=== PATIENT | male | born 1965 | race Caucasian/White ===

== ENCOUNTER → 2017-01-23 | Outpatient (CLI) | payer OTHER ==
[~2017-01-23] MED LIST: ALLO100T PO; CHOL1TAB42 PO; CIPR-255 PO; DICY1TAB25 PO; METH2.5T PO; OMEG120013 PO; PRED20TA PO; VEDO1INJ IV
[2017-01-23 09:41] LABS: BASO % 0.5 %; BASO ABS # 0.05 K/uL (0-0.2); COMPLETE YES; EOS % 6.1 %; HEMATOCRIT 42.3 % (42-52); IG% 0.3 %; LYMPH % 37.1 %; LYMPH ABS # 3.43 K/uL (1.2-3.4); MEAN CELL VOLUME 86.7 fL (80-100); MEAN CORPUSCULAR HEMOGLOBIN 28.7 pg (25-34); MEAN CORPUSCULAR HGB CONC 33.1 g/dl (32-36); MONO % 7.1 %; NEUT % 48.9 %; PLATELET COUNT 285 K/uL (130-400); RED BLOOD COUNT 4.88 M/uL (4.7-6.1); WHITE BLOOD COUNT 9.25 K/uL (4.8-10.8)
[2017-01-23 09:54] LABS: ESTIMATED AVERAGE GLUCOSE 114 mg/dl; HA1C FLAG Normal (Normal)
[2017-01-23 10:00] LABS: ALT/SGPT 34 U/L (12-78); AST/SGOT 16 U/L (15-37); BLOOD UREA NITROGEN 14 mg/dl (7-18); BUN/CREATININE RATIO 12.6 (10-20); CALCIUM 8.9 mg/dl (8.5-10.1); CARBON DIOXIDE 25 mmol/L (21-32); CHLORIDE 107 mmol/L (98-107); CHOLESTEROL 197 mg/dl (0-200); GLUCOSE 96 mg/dl (70-99); POTASSIUM 4.1 mmol/L (3.5-5.1); SODIUM 140 mmol/L (136-145); TRIGLYCERIDES 543 mg/dl (0-150); URIC ACID 7.3 mg/dl (2.6-7.2)
[2017-01-23 10:04] LABS: ALB/GLOB RATIO 0.8 (0.9-2); ALKALINE PHOSPHATASE 81 U/L (45-117); CHOLESTEROL/HDL RATIO 4.4; HDL CHOLESTEROL 45 mg/dl
== END | disposition home or self-care (01) ==
LOC: C.LAB 07:38
PROVIDERS: ATTEND Family Medicine
DX: Z00.00 Encounter for general adult medical examination without abnormal findings (principal); K50.90 Crohn's disease, unspecified, without complications; E79.0 Hyperuricemia without signs of inflammatory arthritis and tophaceous disease; R73.03 Prediabetes; E55.9 Vitamin D deficiency, unspecified; E78.2 Mixed hyperlipidemia; R63.8 Other symptoms and signs concerning food and fluid intake

== ENCOUNTER → 2017-05-13 | Outpatient (CLI) | payer OTHER ==
--- NOTE | 2017-05-13 14:59 | DIAGNOSTIC IMAGING REPORT ---
KUB CLINICAL HISTORY: 52 years-old Male presenting with kidney stones. TECHNIQUE: Single supine view of the abdomen was obtained. COMPARISON: 09/17/2015. FINDINGS: No convincing calcification projects over the renal shadows or along the courses of the bilateral ureters to suggest calculi. Possibly of bowel gas, nonspecific. No gross pneumoperitoneum. Osseous structures normal. IMPRESSION: 1. No radiographic evidence of renal calculi. Electronically signed by: Jake Simpson M.D. 05/13/2017 2:58 PM Dictated Date/Time: 05/13/2017 2:57 PM
== END | disposition home or self-care (01) ==
LOC: C.LAB 14:31
PROVIDERS: ATTEND Urology
DX: N20.0 Calculus of kidney (principal)

== ENCOUNTER → 2017-07-10 | Outpatient (CLI) | payer OTHER ==
[2017-07-10 10:01] LABS: ESTIMATED AVERAGE GLUCOSE 108 mg/dl; HA1C FLAG Normal (Normal)
[2017-07-10 10:03] LABS: ALT/SGPT 50 U/L (12-78); AST/SGOT 22 U/L (15-37); BLOOD UREA NITROGEN 14 mg/dl (7-18); BUN/CREATININE RATIO 13.2 (10-20); CALCIUM 8.7 mg/dl (8.5-10.1); CARBON DIOXIDE 23 mmol/L (21-32); CHLORIDE 109 mmol/L (98-107); CHOLESTEROL 197 mg/dl (0-200); CREATININE 1.07 mg/dl (0.60-1.40); GLUCOSE 91 mg/dl (70-99); POTASSIUM 4.1 mmol/L (3.5-5.1); SODIUM 139 mmol/L (136-145)
[2017-07-10 10:05] LABS: ALB/GLOB RATIO 0.8 (0.9-2); ALKALINE PHOSPHATASE 82 U/L (45-117); CHOLESTEROL/HDL RATIO 3.4; HDL CHOLESTEROL 58 mg/dl; LDL CHOLESTEROL CALCULATED 81 mg/dl; TRIGLYCERIDES 289 mg/dl (0-150); URIC ACID 8.1 mg/dl (2.6-7.2); VERY LOW DENSITY LIPOPROT CALC 58 mg/dl
== END | disposition home or self-care (01) ==
LOC: C.LAB1850 07:42
PROVIDERS: ATTEND Family Medicine
DX: J06.9 Acute upper respiratory infection, unspecified (principal); K50.90 Crohn's disease, unspecified, without complications; E79.0 Hyperuricemia without signs of inflammatory arthritis and tophaceous disease; E78.2 Mixed hyperlipidemia; R73.03 Prediabetes

== ENCOUNTER → 2018-01-01 | Outpatient (CLI) | payer OTHER ==
[2018-01-01 09:53] LABS: HEMOGLOBIN A1C 5.4 % (4.5-5.6)
[2018-01-01 09:59] LABS: ALBUMIN 3.2 gm/dl (3.4-5.0); ALT/SGPT 36 U/L (12-78); AST/SGOT 19 U/L (15-37); BLOOD UREA NITROGEN 12 mg/dl (7-18); CALCIUM 8.9 mg/dl (8.5-10.1); CARBON DIOXIDE 24 mmol/L (21-32); CREATININE 1.07 mg/dl (0.60-1.40); GLUCOSE 93 mg/dl (70-99); POTASSIUM 3.9 mmol/L (3.5-5.1); SODIUM 137 mmol/L (136-145); TOTAL PROTEIN 7.3 gm/dl (6.4-8.2)
[2018-01-01 10:03] LABS: ALKALINE PHOSPHATASE 69 U/L (45-117); CHOLESTEROL 182 mg/dl (0-200); LDL CHOLESTEROL CALCULATED 74 mg/dl; URIC ACID 6.6 mg/dl (2.6-7.2)
== END | disposition home or self-care (01) ==
LOC: C.LAB 08:18
PROVIDERS: ATTEND Family Medicine
DX: K50.90 Crohn's disease, unspecified, without complications (principal); E78.5 Hyperlipidemia, unspecified; E79.0 Hyperuricemia without signs of inflammatory arthritis and tophaceous disease; R73.03 Prediabetes

== ENCOUNTER 2023-02-28 11:10 | Observation (INO) ==
--- NOTE | 2023-02-22 08:44 | Anesthesiology Consultation ---
Date of Service February 22, 2023 Assessment & Plan (1) Encounter for pre-operative examination: Chart Review Chart Review: Acceptable Risk for Surgery and Patient NOT seen in Pre Admission Testing -COVID screening: Per PAT nursing assessment on 02/19/23. No known COVID-19 positive contacts or current COVID-19 related symptoms. Travel screen negative. Patient vaccinated for Covid. At surgeon discretion if preop Covid testing being done. History Surgery Operation Date: 02/28/23 10:20 Proposed Procedures p TURP (Transurethral Resection Prostate) - Jason Suarez, Height/Weight Height: 5 ft 9.5 in Weight: 106.594 kg Allergies Allergy/AdvReac Type Severity Reaction Status Date / Time No Known Allergies Allergy Verified 02/19/23 14:00 Medications Home Medications Medication Instructions Recorded Confirmed Last Taken allopurinol 100 mg tablet 300 mg PO HS 11/16/21 02/19/23 08/29/22 23:00 cyanocobalamin (vitamin B-12) 1,000 mcg PO HS 11/16/21 02/19/23 08/29/22 23:00 1,000 mcg capsule lisinopril 10 mg tablet 10 mg PO HS 11/16/21 02/19/23 08/29/22 23:00 vedolizumab 300 mg intravenous 300 mg IV UD 11/16/21 02/19/23 07/19/22 14:00 solution (Entyvio) cholecalciferol (vitamin D3) 25 75 mcg PO HS 08/21/22 02/19/23 08/29/22 23:00 mcg (1,000 unit) tablet (Vitamin D3) ferrous sulfate 325 mg (65 mg 650 mg PO HS 08/21/22 02/19/23 08/29/22 23:00 iron) tablet ciprofloxacin HCl 500 mg tablet 500 mg PO BID 3 days #6 tabs 02/14/23 02/14/23 Unknown tamsulosin 0.4 mg capsule 0.4 mg PO DAILY #30 caps 02/14/23 02/19/23 Unknown Past Medical History Medical History Crohns disease Entyvio History of kidney stones Reason for allopurinol Hx of intestinal obstruction Hyperlipidemia No meds Hypertension Ileostomy in place Past Family History Family History Other No family history of adverse response to anesthesia Past Surgical History Surgical History H/O abdominal surgery MULTIPLE INTESTINAL SURGERIES (RESECTION FOR CROHN'S DISEASE) H/O transurethral resection of prostate History of cataract surgery RT/LEFT History of cystoscopy History of esophagogastroduodenoscopy (EGD) History of incisional hernia repair Hx of colonoscopy Hx of varicose vein ligation Social History Smoking Status: Never smoker tobacco type: smokeless tobacco Do You Dip or Chew Tobacco: Yes (chews tobacco occasionally- advised) Hx Alcohol Use: Yes Alcohol type: beer alcohol intake frequency: holidays/special occasions only Hx Substance Use: No substance use type: does not use Lab Results Anesthesia Preop Results Results Anesthesia Widget: WBC 9.61 K/ul (4.8-10.8) 02/20/23 Hgb 12.9 g/dl (14.0-18.0) L 02/20/23 Hct 39.2 % (42.0-52.0) L 02/20/23 Plt 320 K/uL (130-400) 02/20/23 Na 139 mmol/L (136-145) 02/20/23 K 4.1 mmol/L (3.5-5.1) 02/20/23 Cl 106 mmol/L (98-107) 02/20/23 CO2 26 mmol/L (21-32) 02/20/23 BUN 21 mg/dl (6-23) 02/20/23 Creat 0.91 mg/dl (0.6-1.4) 02/20/23 Glucose Level 93 mg/dl (70-99(Fasting)) 02/20/23 HA1c 5.2 % (4.5-5.6) 01/09/23 Testing Laboratory Results 02/14/23= UA: trace protein URINE CULTURE: No growth Electrocardiogram Date: 08/27/22 Findings: + NSR @ (61bpm ) Normal EKG per cardio Chest X-Ray Date: 02/20/23 Findings: + NAD FINDINGS: PA and lateral chest radiographs are compared to study dated 07/27/2015. The cardiomediastinal silhouette is unremarkable noting atherosclerotic calcification of the thoracic aorta. There is mild bibasilar scarring/atelectasis. The lungs and pleural spaces are otherwise clear. There is no pneumothorax. The bony thorax appears intact.
[~2023-02-28 11:10] MED LIST changes: -ALLO100T PO; -CHOL1TAB42 PO; -CIPR-255 PO; -DICY1TAB25 PO; +LR 15ML/HR IV SCH; -METH2.5T PO; -OMEG120013 PO; -PRED20TA PO; -VEDO1INJ IV; +ceFAZolin 2000MG 2,000 MG/15 ML SYR IV SCH
--- NOTE | 2023-02-28 11:32 | History & Physical Bridge Note ---
Date of Service February 28, 2023 History & Physical Bridge Note I have examined the patient, reviewed the History & Physical and in the interval since the performance of the History & Physical I have noted the following changes of clinical significance: no changes noted
[2023-02-28] MEDS ORDERED: ONDANSETRON INJ 2 MG/ML 2 ML VIAL ONE (11:57)
[2023-02-28] MEDS ORDERED: GLYCOPYRROLATE 0.2 MG/ML VIAL ONE (11:57)
[2023-02-28] MEDS ORDERED: DEXAMETHASONE SOD INJ 4 MG/ML VIAL ONE (11:57)
[2023-02-28] MEDS ORDERED: fentaNYL citrate PF 100 MCG/2 ML VIAL ONE ×3 (11:57→15:24)
[2023-02-28] MEDS ORDERED: PROPOFOL IV EMULSION 10 MG/ML 20 ML VIAL IV ONE ×3 (11:57→15:23)
[2023-02-28] MEDS ORDERED: MIDAZOLAM HCL 1 MG/ML 2ML VIAL ONE (13:50)
[2023-02-28] MEDS ORDERED: HYDROmorphone INJ 2 MG/ML SYR/VIAL IV PRN (14:28)
[2023-02-28] MEDS ORDERED: ePHEDrine sulfate 50 MG/ML AMP IV PRN (14:28)
[2023-02-28] MEDS ORDERED: ONDANSETRON INJ 2 MG/ML 2 ML VIAL IV PRN (14:28)
[2023-02-28] MEDS ORDERED: fentaNYL citrate PF 100 MCG/2 ML VIAL IV PRN (14:28)
[2023-02-28] MEDS ORDERED: ATROPINE SULFATE 0.1 MG/ML 10ML SYR IV PRN (14:28)
[2023-02-28] MEDS ORDERED: PHENAZOPYRIDINE HCL 200 MG TAB PO PRN (15:39)
[2023-02-28] MEDS ORDERED: MoRPHine SULFATE 2 MG/ML CARP IV PRN (15:39)
[2023-02-28] MEDS ORDERED: oxyCODONE/ACETAMINOPHEN 5mg/325mg TAB PO PRN (15:39)
--- NOTE | 2023-02-28 15:39 | Operative Report ---
PG Post Operative Report Pre & Post Diagnosis Operation Date: 02/28/23 12:40 Pre-Op Diagnosis: Hematuria, Incomplete Bladder Emptying, Benign Enlarged Prostate Post-Op Diagnosis: Hematuria, Incomplete Bladder Emptying, Benign Enlarged Prostate I identified the patient and participated in the time-out.: Yes Procedure Operation Date: 02/28/23 12:40 Actual Procedures p Transurethral Resection of the Prostate Extraction of bladder stone. - Jason Suarez DO Surgeon Jason Suarez, II, DO Sample Box Maker None Estimated Blood Loss 10 Findings Consistent with Post-Op Diagnosis Large Prostate with obstruction. Very large lateral lobes of prostate. Small bladder stone in base of bladder Specimens Prostate adenoma. Bladder stone Drains 22Fr Catheter Anesthesia Type General Complications none Disposition Disposition: Recovery Room Indications Patient with obstruction due to prostate enlargement. Risks and benefits discussed at length. Description of Procedure Patient was consented and brought back to the operating room. Patient was placed under anesthesia in the supine position and moved to the dorsal lithotomy position. Patient was prepped and draped in the regular sterile fashion. A time out was completed. A 30degree Cystoscope was placed into the bladder and the entire bladder was e xamined. The UO's were identified as well as the bladder neck, trigone, dome, and the other important landmarks. The prostatic urethra and large lobes/adenoma was assessed and the veru and bladder neck identified and area/size was assessed. The resection scope was placed and the fine bipolar loop was selected. Within the base of the bladder a small bladder stone was discovered. This was irrigated and cleared. Starting at the 1 and 11 o'clock positions, the lateral lobes were resected down to capsule fibers sweeping down to the 6 o'clock position. Resection was taken from bladder neck to the region of the veru. The Specimen was removed and sent for analysis. The resection bed and any bleeding areas were fulgurated/cauterized and the entire area inspected. All bleeding was controlled. The bladder was inspected a final time. The bladder was emptied and irrigated. All specimen and debris was removed. The scope was removed with the bladder partially full. A catheter was placed and balloon elevated. This was easily irrigated. The patient was cleaned, aroused from anesthesia, and transferred to the pacu in stable condition having tolerated the procedure well with no complications. I was present and participated in all aspects of the procedure. The patient will be monitored in the PACU until transferred. Plan to observe over night with CBI running. Followup in approx 1 week with catheter removal and path review. I attest to the content of the Intraoperative Record and any orders documented therein. Any exceptions are noted below.
--- NOTE | 2023-02-28 15:53 | Anesthesiology Progress Note ---
Date of Service February 28, 2023 Anesthesia Post Procedure Vital Signs Vital Signs: Temp Pulse Resp BP Pulse Ox O2 Del Method 02/28/23 12:10 36.7 C 70 18 139/86 96 Room Air Transfer of Care Handoff Completed per policy Notes Mental Status: alert / awake / arousable and participated in evaluation Patient Amnestic to Procedure: Yes Nausea / Vomiting: adequately controlled Pain: adequately controlled Airway Patency, RR, SpO2: stable & adequate BP & HR: stable & adequate Hydration State: stable & adequate Anesthetic Complications: no major complications apparent and Pt Satisfied with anesthetic care
[2023-02-28 16:40] LABS: Albumin Globulin Ratio 1.3 (0.9-2); Albumin Level 3.4 gm/dl (3.4-5.0); BUN Creatinine Ratio 16.2 (10-20); Bilirubin,Total 0.6 mg/dl (0.2-1.0); Calcium 8.5 mg/dl (8.6-10.3); Creatinine Clr Calc Pharmacy 102.5 ml/min; Est GFR (Non-African American) 85.4 ml/min; Globulin 2.6 gm/dl (2.5-4.0); Potassium 3.8 mmol/L (3.5-5.1)
[2023-02-28] MEDS: SODIUM CHLORIDE 0.9% 1000ML 1,000 ML IV SCH (17:55)
[2023-02-28] MEDS: DOCUSATE SODIUM 100 MG CAP PO SCH (20:18)
[2023-02-28] MEDS ORDERED: allopurinoL 300 MG TAB PO SCH (21:00)
[2023-02-28] MEDS ORDERED: lisinopril 10 MG TAB PO SCH (21:00)
[2023-02-28] MEDS: ceFAZolin 2000MG 2,000 MG/15 ML SYR IV SCH (21:04)
[2023-03-01] MEDS: SODIUM CHLORIDE 0.9% 1000ML 1,000 ML IV SCH (05:30)
[2023-03-01] MEDS: ceFAZolin 2000MG 2,000 MG/15 ML SYR IV SCH (05:30)
--- NOTE | 2023-03-01 08:30 | Urology Progress Note ---
Date of Service March 01, 2023 Assessment & Plan (1) BPH (benign prostatic hyperplasia): (2) Incomplete bladder emptying: Plan - Pt POD#1 s/p TURP with Dr. Suarez. - Doing well, progressing as expected. - Afebrile, hemodynamically stable, lab work reviewed - creatinine 0.99. - 3 way Hernandez catheter intact, patent and draining clear yellow urine with CBI on slow. - CBI clamped @0750, nursing aware - will reassess later this AM. - Maintain Hernandez catheter. - Anticipate home with Hernandez catheter later today presuming urine appropriate and he continues to progress as expected. Patient reassessed this am. Hernandez draining light pink urine off CBI. Okay to discontinue CBI set up and clamp irrigation port. Patient is ready for discharge home today with Hernandez catheter -orders placed. Expected clinical course reviewed, all questions answered. Outpatient follow-up in place. Admission and Anticipated Discharge Date Admission Date: February 28, 2023 Subjective Patient examined at bedside this AM. Awake, sitting in bedside chair on arrival. No acute distress. No issues overnight. Hernandez catheter intact, draining clear yellow urine with CBI on slow. Denies fevers, chills, nausea, vomiting. Denies any pain or discomfort. Ambulating without issue. Review of Systems Constitutional: as per Subjective / HPI Gastrointestinal: as per Subjective / HPI Genitourinary: + as per Subjective / HPI Physical Exam Constitutional: well developed and well nourished; no acute distress Respiratory: normal respiratory effort; no respiratory distress and no labored breathing Musculoskeletal: Head/Neck/Chest: normocephalic Neurologic: moves all extremities and awake Psychiatric: A+Ox3, euthymic affect Genitourinary: Hernandez intact with CBI Results & Data Vital Signs (Past 12 Hours) Vital Signs Temp Pulse Resp BP Pulse Ox O2 Del Method 03/01/23 07:47 36.7 C 67 18 133/85 98 Room Air 03/01/23 03:30 36.8 C 74 16 105/64 94 Room Air 02/28/23 22:27 36.9 C 65 16 111/71 96 Room Air PG Care Time/CCT Total # of Minutes Spent Total Time Spent with Patient: Total time spent is greater than 50% in coordination of care (as documented) at patient's floor/unit and/or counseling patient: Coding Level of Care Code None Diagnoses BPH (benign prostatic hyperplasia) N40.0 Incomplete bladder emptying R33.9
[2023-03-01] MEDS: DOCUSATE SODIUM 100 MG CAP PO SCH (08:45)
[2023-03-01] MEDS ORDERED: TAMSULOSIN HCL 0.4 MG CAP PO SCH (09:00)
--- NOTE | 2023-03-01 10:49 | Discharge Summary ---
Date of Service March 01, 2023 Admission HPI Per Admitting Provider 57 year old male with BPH with obstruction who presented for TURP procedure with Dr. Suarez Admission Exam Per Admitting Provider General: Alert in no acute distress. HEENT: Normocephalic Atraumatic. Inspection normal. Psychologic: Normal affect. Respiratory: Nonlabored. Cardiovascular: No tachycardia Skin: [place] and Dry. Principal Diagnosis BPH, Incomplete emptying, hematuria Discharge Exam Constitutional well developed and well nourished; no acute distress Respiratory normal respiratory effort; no respiratory distress and no labored breathing Musculoskeletal Head/Neck/Chest: normocephalic Neurologic moves all extremities and awake Psychiatric A+Ox3, euthymic affect Genitourinary Hernandez intact, urine is clear Discharge Data Allergies Allergy/AdvReac Type Severity Reaction Status Date / Time No Known Allergies Allergy Verified 02/28/23 12:06 Procedures Performed Operation Date: 02/28/23 12:40 Actual Procedures p Transurethral Resection of the Prostate(Not Applicable) - Jason Suarez, DO Hospital Course (1) BPH (benign prostatic hyperplasia): (2) Incomplete bladder emptying: Plan 57 year old male admitted status post TURP and extraction of bladder stone. Patient tolerated procedure well. No acute issues postoperatively. Remained afebrile and hemodynamically stable. Labs shows stable creatinine. CBI clamped in the morning of postop day #1. Urine remained clear to light pink off CBI. Tolerated diet. No reported pain. Ambulated without issue. Patient discharged home on postop day #[address] with [address] catheter in place. He was in stable condition at time of discharge. Expected clinical course was reviewed, all questions answered. Outpatient follow-up in place. Total Time Total Time Spent Total Time Spent (In Minutes): 15 Discharge Plan Discharge Items Patient Disposition: Home - Self-Care Reason For Visit: Hematuria, Incomplete Bladder Emptying, Bengign Pr Discharge Diagnosis: BPH, Incomplete bladder emptying, hematuria Condition on Discharge: Good Activity: Resume your previous activity Lifting: No more than 50 pounds Bathing Comment: OK to shower. No tub baths or soaks. Non-emergency contact: Surgeon and Urologist Call non-emergency contact if: you have any medication questions, your symptoms worsen, your pain is not controlled, your pain is worsening, your pain is unusual for you, your pain is concerning for you, you have a fever and your temperature is above 101.5 Follow-up/Referrals: Jason Suarez DO [Physician] - 03/08/23 9:35 am Fabio Garvey [Primary Care Provider] - Diet: Regular Addtl Attending Provider Instructions: Please take all medications as prescribed and keep all follow-ups as scheduled. Please call our office at [phone] with any questions, concerns or need to reschedule appointments for any reason. We are happy to assist you. Tips for your recovery at home: Dont be alarmed by brownish or reddish blood or clots in your urine. This is a result of the procedure. This may occur off and on for weeks to months after the procedure but should continue to improve. Drink plenty of fluids during the day (enough to keep your urine very light colored). This will help keep a healthy flow of urine. Do not lift >50 lbs until your followup Avoid constipation. Please use a stool softener (Colace) for the first two weeks after your procedure if needed. Be sure to finish the antibiotics as prescribed. If you go home with a catheter, please wash tubing where it enters your body twice daily with mild soap (Dove or Dial). Once your catheter is removed, expect some blood in your urine and some burning when you urinate. You should have an appointment to have this removed, if you do not please call our office to arrange. When to call [facility] at [phone]: Your urine contains heavy blood clots or your catheter is not draining You are constantly leaking urine Fever of 101F or higher, chills, nausea, or vomiting Your pain is not relieved with medication Pending Studies at Discharge: No Stand-Alone Forms: My [facility] [employer] Medications and DC Order Prescriptions: New cephalexin 500 mg capsule 500 mg PO BID 7 Days Qty: 14 0RF Continued tamsulosin 0.4 mg capsule 0.4 mg PO DAILY Qty: 30 2RF allopurinol 100 mg Tablet 300 mg PO HS lisinopril 10 mg Tablet 10 mg PO HS Entyvio 300 mg Recon Soln 300 mg IV UD Patient Comments: EVERY 8 WEEKS Rx Instructions: every 8 weeks cyanocobalamin (vitamin B-12) 1,000 mcg Capsule 1,000 mcg PO HS ferrous sulfate 325 mg (65 mg iron) Tablet 650 mg PO HS cholecalciferol (vitamin D3) [Vitamin D3] 25 mcg (1,000 unit) Tablet 75 mcg PO HS Discharge Orders: Discharge Order (Routine); Ordered 03/01/23 Ordered By: Celeste Dickson/Other Patient Handouts: Indwelling Urinary Catheter Dc, Leg Bag Care Dc Admission Data Admit Date/Time: 02/28/23 15:39 Attending Provider: Jason Suarez Admit Provider: Jason Suarez Primary Care Provider: Fabio Garvey Other Interventions: Discharge Summary Assessment (RN) Last Done: 03/01/23 11:39 Coding Level of Care Code 74306 IN/OBS DISCH 30 MIN/LESS Diagnoses BPH (benign prostatic hyperplasia) N40.0 Incomplete bladder emptying R33.9
== END 2023-03-01 11:54 | disposition home or self-care (01) ==
LOC: 3W 11:10 → ASU 11:10